=== PATIENT | male | born 1990 ===

== ENCOUNTER 2024-11-24 05:58 | Emergency (ER) | payer SELFPAY ==
[~2024-11-24] VITALS: Ht 167.6 cm; Wt 82.0 kg
[2024-11-24 06:06] VITALS: O2SAT 100
[2024-11-24] MEDS ORDERED: KETOROLAC 30MG/ML VIAL IM ONE (06:45)
[2024-11-24] MEDS ORDERED: NEOM28.38 TP (07:57)
[2024-11-24] MEDS ORDERED: SULF1TAB48 MT (07:57)
[2024-11-24] MEDS: LIDOCAINE HCL/PF 1% 10 MG/ML 5ML VIAL INFIL ONE (09:36)
[2024-11-24] MEDS: DIPHENHYDRAMINE 25MG CAPSULE PO NR (09:36)
[2024-11-24] MEDS: BACITRACIN ZINC OINT UDPKT TOP ONE (09:36)
[2024-11-24] MEDS: KETOROLAC 30MG/ML VIAL IM NR (09:36)
[2024-11-24] MEDS: DIPHENHYDRAMINE 50MG CAPSULE PO ONE (09:36)
[2024-11-24] MEDS ORDERED: METH-653 MT (09:37)
[2024-11-24 09:45] VITALS: BP 133/68; PULSE 85; RESP 18; TEMP 36.94740; O2SAT 100
== END 2024-11-24 11:40 | disposition home or self-care (01) ==
LOC: ER 05:58
DX: L02.213 Cutaneous abscess of chest wall (principal); L73.9 Follicular disorder, unspecified
CPT/HCPCS: 93976; 76870; 96372; 99285; Q0163; J1885; J3490; Z7610 ×2